=== PATIENT | male | born 1985 | race Caucasian/White ===

== ENCOUNTER 2016-11-21 10:09 | Day surgery (SDC) | payer OTHER ==
[~2016-11-21] VITALS: Ht 180.3 cm; Wt 109.0 kg
[~2016-11-21 10:09] MED LIST: Lactated Ringer's 1,000 ML IV ONE; RIFA550T3 PO
[2016-11-21] MEDS ORDERED: fentaNYL-PF 50 mCg/mL 2 mL Inj ONE (10:10)
[2016-11-21] MEDS ORDERED: Propofol 10,000 mCg/mL 20 mL Inj ONE (10:10)
[2016-11-21 10:53] VITALS: BP 163/115; PULSE 86; RESP 16; O2SAT 97
--- NOTE | 2016-11-21 11:36 | PCM.HPANE ---
Patient Data Surgeon Admitting Provider: Attending Provider:Conner Zayas MD Primary Care Physician:Donald Greene MD Other Provider:[facility] An[facility] Reason for Visit Diarrhea Ht/WT & BMI Body Mass Index Allergies Coded Allergies: No Known Drug Allergies (Verified Allergy, Unknown, 11/17/16) Medications Discontinued Reported Medications Rifaximin (Xifaxan)550 Mg Acidqw222 Mg PO TID 60 Days 11/17/16 Stop/Bang Risk Assessment Category Category 1A: Patient has history of documented sleep apnea, and HAS NOT received any narcotic, sedative or anesthesia administration during this stay. Category 1B: Patient has history of documented sleep apnea, and HAS received any narcotic , sedative or anesthesia administration during this stay Category 2: Patient has SUSPECTED Obstructive Sleep Apnea, and HAS received any narcotic , sedative or anesthesia administration during this stay. Category 3: Patient has SUSPECTED Obstructive Sleep Apnea and HAS NOT received narcotic, sedative or anesthesia administration during this stay. Category 4: Outpatient in Procedural Areas with known sleep apnea or who screen positive for High Risk via the STOP/BANG questionnaire. Exam Exam General Appearance: Alert, Oriented X3, Cooperative, No Acute Distress HEENT/AIRWAY: MP 1 Lungs: Clear to Auscultation Heart: Exam Unremarkable Plan Impression Patient chart reviewed, patient interviewed and anesthestic plan with risks, benefits, and alternatives discussed, and informed consent obtained. ASA Physical Status: ASA2 Mod Systemic Disease Anesthetic Plan: MAC Bene/Risks/Altern/Consents: Yes HP Complete Prior to Induction: Yes Sebastian Mckoy MD Nov 21, 2016 08:01
[2016-11-21] MEDS ORDERED: Lactated Ringer's 1,000 ML IV ONE (11:49)
[2016-11-21 12:01] VITALS: BP 117/77; PULSE 97; RESP 14; O2SAT 97
[2016-11-21 12:12] VITALS: BP 125/66; PULSE 89; RESP 14; O2SAT 98
--- NOTE | 2016-11-21 12:20 | PCM.ANEP2 ---
Post Anesthesia Evaluation ASA/CMS Post Anesthesia VS in Patient's Normal Range?: Yes Resp Stable; Airway Patent?: Yes CV Function & Hydration Stable: Yes Mental Status Recovered?: Yes Pain control Satisfactory?: Yes N/V Control Satisfactory?: Yes Sebastian Mckoy MD Nov 21, 2016 12:20
--- NOTE | 2016-11-21 15:01 | ENDO ---
[address] [address] ENDOSCOPY PROCEDURE PATIENT: ALEYDA HIRSCH : 1985 MR#: [id number] ADMIT: 11/21/2016 JOB ID: [id number] DATE OF SERVICE: 11/21/2016 TYPE OF OPERATION: 1. Esophagogastroduodenoscopy with biopsy. 2. Colonoscopy with biopsy. PREOPERATIVE DIAGNOSIS(ES): 1. Abdominal pain. 2. Diarrhea. POSTOPERATIVE DIAGNOSIS(ES): 1. Normal upper endoscopy, status post biopsy. 2. Normal colonoscopy, status post biopsy. ANESTHESIA: Monitored anesthesia care. COMPLICATIONS: None. BLOOD LOSS: Minimal. DESCRIPTION OF PROCEDURE: After risks and benefits were explained to the patient, informed consent was obtained. After anesthesia administered, upper endoscope was then inserted into mouth intubating the esophagus, stomach, second portion of the duodenum. Mucosa carefully examined. After the procedure was done, the scope withdrawn and procedure terminated. A colonoscope was then inserted from the rectum to the terminal ileum. Mucosa carefully examined. Prep of the patient was fair. After the procedure was done, the scope was withdrawn and the procedure terminated. FINDINGS: Upon inspection of the esophagus, the esophagus was normal without masses, ulcers, or lesions. Z-line located at 40 cm from incisors. Upon entering the stomach, the stomach was normal without masses, ulcers, lesions. Retroflexion was normal. Duodenal bulb, first and second portions were normal. Biopsies taken of duodenum, antrum, body of stomach. Upon inspection of the anus, no masses, hemorrhoids, ulcers, or fissures that were seen. Throughout the entire examination, there were no polyps, masses, lesions, or ulcers. Biopsies taken from terminal ileum and random colon to rule out inflammatory bowel disease, microscopic colitis. Retroflexion was normal. IMPRESSION: 1. Normal upper endoscopy, status post biopsy. 2. Normal colonoscopy, status post biopsy. RECOMMENDATION: Await pathology results. Follow up in GI clinic as needed.
--- NOTE | 2016-11-22 11:19 | PATH ---
SURGICAL PATHOLOGY Attending Physician:Conner Zayas MD CASE STATUS: Signed Out PATIENT NAME: ALEYDA HIRSCH PID: [id number] : 1985 DATE COLLECTED:11/21/2016 19:34 SPECIMEN: 1: Duodenum, Biopsy 2: Stomach, Antrum, Biopsy 3: Gastric, Biopsy 4: Ileum, Biopsy 5: Colon, Biopsy CLINICAL HISTORY: 1. DUODENAL BIOPSY 2. ANTRUM BIOPSY 3. GASTRIC BODY BIOPSY 4. TERMINAL ILEUM BIOPSY 5. RANDOM COLON BIOPSY FINAL DIAGNOSIS: 1. Duodenum, Biopsy: Normal small bowel mucosa. Negative for inflammation, histologic evidence of celiac disease, granulomas, dysplasia and malignancy. 2. Stomach, Antrum, Biopsy: Antral mucosa with mild chronic gastritis. Negative for active inflammation and Helicobacter organisms. Negative for intestinal metaplasia, dysplasia and malignancy. 3. Stomach, Body, Biopsy: Body-type gastric mucosa with no diagnostic abnormality. Negative for inflammation and Helicobacter organisms. Negative for intestinal metaplasia, dysplasia and malignancy. 4. Terminal Ileum, Biopsy: Normal small bowel mucosa. Negative for inflammation, abnormal villous architecture, granulomas, dysplasia and malignancy. 5. Colon, Random Biopsy: Normal colonic mucosa. Negative for inflammation, microscopic colitis, granulomas, dysplasia and malignancy. ICD10 R10.13, R19.7 GROSS DESCRIPTION: The specimen is received in five formalin filled containers labeled with the patient's name. 1). The specimen is sublabeled "duodenal" and consists of 2 portions of tissue which aggregate to 0.4 x 0.3 x 0.2 CM. Specimen is entirely submitted in cassette 1A. 2). The specimen is sublabeled "antrum" and consists of 2 portions of tissue which aggregate to 0.4 x 0.3 x 0.2 CM. The specimen is entirely submitted in cassette 2A. 3). The specimen is sublabeled "gastric body" and consists of 2 portions of tissue which aggregate to 0.4 x 0.4 x 0.2 CM. The specimen is entirely submitted in cassette 3A. 4). The specimen is sublabeled "TI" and consists of 2 portions of tissue which aggregate to 0.4 x 0.3 x 0.2 CM. The specimen is entirely submitted in cassette 4A. 5). The specimen is sublabeled "random colon" and consists of multiple portions of tissue which aggregate to 0.9 x 0.4 x 0.3 CM. The specimen is entirely submitted in cassette 5A. 11/21/2016 [facility] ICD-9 CODES: CPT CODES: 1: 42102 2: 66335 3: 25868 4: 64267 5: 59581 Electronically Signed Out Leonidas Stephen MD, PhD [facility] [address], [place] [address] Technical component performed at [facility], [address], [place], [address]
== END 2016-11-21 23:59 | disposition home or self-care (01) ==
LOC: END 10:09
PROVIDERS: ATTEND Internal Medicine Gastroenterology
DX: R19.7 Diarrhea, unspecified (principal); K29.50 Unspecified chronic gastritis without bleeding; F12.90 Cannabis use, unspecified, uncomplicated; R14.0 Abdominal distension (gaseous); R10.84 Generalized abdominal pain
CPT/HCPCS: 43235; 45380; J2250; J7120